=== PATIENT | male | born 1990 | race Caucasian/White ===

== ENCOUNTER 2019-01-26 20:22 | Inpatient (IN) | payer SELFPAY ==
[~2019-01-26] VITALS: Ht 172.7 cm; Wt 84.7 kg
[2019-01-26] MEDS ORDERED: ONDANSETRON HCL 4 MG/2 ML VIAL IV ONE (22:45)
[2019-01-26] MEDS ORDERED: cefTRIAXone 1GM/50ML D5W 50 ML IV ONE (22:45)
[2019-01-26] MEDS ORDERED: FAMOTIDINE (10MG/ML) 2ML VL IV ONE (22:45)
[2019-01-26] MEDS ORDERED: SODIUM CHLORIDE 0.9% 1,000 ML IV ONE (22:45)
[2019-01-26 23:22] LABS: Basophils # (auto) 0.1 uL; Basophils % (auto) 0.3 % (0.0-2.0); Eosinophils # (auto) 0 uL; Hematocrit 45.3 % (41.0-53.0); Lymphocytes # (auto) 1.4 uL; Lymphocytes % (auto) 8.7 % (10.0-50.0); Mean Corpuscular Hemoglobin 29.3 pg (28.0-32.0); Mean Corpuscular Hgb Conc. 33.1 g/dL (32.0-36.0); Mean Corpuscular Volume 88.5 fL (80.0-100.0); Monocytes # (auto) 0.8 uL; Neutrophils # (auto) 13.5 uL; Platelet Count (auto) 327 10^3/uL (140-450); Red Blood Cells 5.12 10^6/uL (4.5-5.90); Red Cell Distribution Width 12.7 % (11.8-14.3); White Blood Cell 15.7 10^3/uL (4.4-10.8)
[2019-01-26 23:40] LABS: Albumin 4.2 g/dL (3.4-5.0); BUN/Creatinine Ratio 19.6; Calcium 9.9 mg/dL (8.5-10.1); Potassium 4.1 mmol/L (3.5-5.1)
[2019-01-26 23:42] LABS: Bilirubin, Total 0.5 mg/dL (0.2-1.0); Total Protein 8.3 g/dL (6.4-8.2)
[2019-01-27 01:35] LABS: Alcohol, Urine < 3.0 mg/dL (0-5); Amphetamine Screen, Urine NEGATIVE (NEGATIVE); Barbiturate Scree,Urine NEGATIVE (NEGATIVE); Benzodiazephine Screen, Urine NEGATIVE (NEGATIVE); Cannabinoid Screen, Urine NEGATIVE (NEGATIVE); Cocaine Screen, Urine NEGATIVE (NEGATIVE); Opiate Scree,Urine NEGATIVE (NEGATIVE); Phencyclidine Screen, Urine NEGATIVE (NEGATIVE)
[2019-01-27 01:36] LABS: Urine Bacteria NONE SEEN /hpf (None Seen); Urine Blood Negative /uL (Negative); Urine Mucus FEW (None Seen); Urine WBC 1 /hpf (0 - 3)
[2019-01-27] MEDS ORDERED: SODIUM CHLORIDE 0.9% 1,000 ML IV ONE ×2 (02:15→03:30)
[2019-01-27] MEDS ORDERED: MECLIZINE HCL 25 MG TAB PO ONE ×2 (02:15→02:45)
[2019-01-27] MEDS ORDERED: ONDANSETRON HCL 4 MG/2 ML VIAL IV ONE (02:15)
[2019-01-27] MEDS ORDERED: metroNIDAZOLE 500MG/100ML 100 ML IV ONE (03:30)
[2019-01-27] MEDS ORDERED: ACETAMINOPHEN 325 MG TAB PO PRN (05:00)
[2019-01-27] MEDS ORDERED: HYDROcodone-ACET 5/325MG TAB PO PRN (05:00)
[2019-01-27] MEDS ORDERED: TEMAZEPAM 15 MG CAP PO PRN (05:00)
[2019-01-27] MEDS ORDERED: ONDANSETRON HCL 4 MG/2 ML VIAL IV PRN (05:00)
--- NOTE | 2019-01-27 06:25 | NUR ---
Patient arrived from ER to his room ambulating. He has no pain at the moment but does have severe N/V by his account vomited 40+ times. He is AOx4 and on room air. Bed is locked in lowest position and side rails up x2. Made him aware to use call light if assistance is needed. Will continue to monitor.
[2019-01-27 09:00] VITALS: BP 124/55
[2019-01-27] MEDS: FAMOTIDINE 20 MG TAB PO SCH ×2 (09:34→21:31)
[2019-01-27 13:00] VITALS: BP 105/58
[2019-01-27] MEDS: metroNIDAZOLE 500MG/100ML 100 ML IV SCH ×2 (13:27→21:31)
[2019-01-27 17:00] VITALS: BP 110/69
[2019-01-27] MEDS ORDERED: SUCRALFATE 1 GM/10 ML ORAL SUSP GT SCH (17:00)
[2019-01-27 17:04] LABS: Amylase 55 U/L (25-115); Lipase 149 U/L (73-393)
--- NOTE | 2019-01-27 19:10 | NUR ---
Opening Shift Note Assumed care of patient, awake and alert x4. Bed is in lowest position, side rails up x2, call light is within reach. No S/S of distress/SOB or pain. He stated he feels dizzy when he opens both eyes. Instructed him to call if he needs to get out of bed. Bed alarm is on. Instructed on POC and to call for assist PRN, will continue to monitor for changes Q1hr and PRN.
[2019-01-27] MEDS: SUCRALFATE 1 GM/10 ML ORAL SUSP PO SCH (21:31)
[2019-01-27] MEDS: cefTRIAXone 1GM/50ML D5W 50 ML IV SCH (21:31)
[2019-01-27 22:00] VITALS: BP 103/59
[2019-01-28 04:54] VITALS: BP 114/70
[2019-01-28] MEDS: SUCRALFATE 1 GM/10 ML ORAL SUSP PO SCH ×4 (06:46→21:24)
[2019-01-28] MEDS: metroNIDAZOLE 500MG/100ML 100 ML IV SCH ×3 (06:46→21:24)
--- NOTE | 2019-01-28 07:20 | NUR ---
Opening Shift Note Assumed care of patient, awake and alert. No S/S of distress/SOB or pain. Instructed on POC and to call for assist PRN, will continue to monitor for changes Q1hr and PRN.
--- NOTE | 2019-01-28 07:25 | NUR ---
Endorsed care to dayshift SHABBIR Spencer.
[2019-01-28 08:00] VITALS: BP 116/67
[2019-01-28 08:29] LABS: Basophils # (auto) 0.1 uL; Basophils % (auto) 0.8 % (0.0-2.0); Eosinophils # (auto) 0.1 uL; Eosinophils % (auto) 1.5 % (0.0-7.0); Hematocrit 47.5 % (41.0-53.0); Hemoglobin 15.6 g/dL (13.5-17.5); Lymphocytes # (auto) 2.4 uL; Lymphocytes % (auto) 30.5 % (10.0-50.0); Mean Corpuscular Hemoglobin 29.4 pg (28.0-32.0); Mean Corpuscular Hgb Conc. 32.8 g/dL (32.0-36.0); Mean Corpuscular Volume 89.6 fL (80.0-100.0); Monocytes # (auto) 0.7 uL; Monocytes % (auto) 9.1 % (0.0-12.0); Neutrophils # (auto) 4.6 uL; Neutrophils % (auto) 58.1 % (37.0-80.0); Platelet Count (auto) 312 10^3/uL (140-450); Red Blood Cells 5.31 10^6/uL (4.5-5.90); Red Cell Distribution Width 12.9 % (11.8-14.3)
[2019-01-28 08:47] LABS: BUN/Creatinine Ratio 10.7; Calcium 9.2 mg/dL (8.5-10.1); Potassium 3.9 mmol/L (3.5-5.1)
[2019-01-28 09:08] VITALS: BP 116/75
[2019-01-28] MEDS: FAMOTIDINE 20 MG TAB PO SCH ×2 (10:15→21:24)
[2019-01-28 12:38] VITALS: BP 112/68
[2019-01-28 17:13] VITALS: BP 110/70
--- NOTE | 2019-01-28 17:30 | NUR ---
EGD Left message with Dr. Ybarra. Patient does not want to sign consents or to have EGD. Addendum: 01/28/19 at 1920 by TORRES SALGUERO RN Received call back from Dr. Ybarra. Ordered to cancel consent and NPO orders.
--- NOTE | 2019-01-28 19:20 | NUR ---
Opening Shift Note Assumed care of pt., awake and alert x4, resting in bed on cell phone. No S/S of distress or SOB, no pain noted or reported at this time. Respirations are even and unlabored on room air. Updated pt. on POC and instructed to call for assistance as needed, pt. verbalized understanding. Bed locked in lowest position, side rails up x2, call light within reach. Will continue to monitor q1hr and PRN.
[2019-01-28] MEDS: cefTRIAXone 1GM/50ML D5W 50 ML IV SCH (21:24)
[2019-01-28 22:00] VITALS: BP 102/48
--- NOTE | 2019-01-29 05:06 | NUR ---
Pt. refused lab draw
[2019-01-29 05:07] VITALS: BP 110/71
[2019-01-29] MEDS: SUCRALFATE 1 GM/10 ML ORAL SUSP PO SCH (06:51)
[2019-01-29] MEDS: metroNIDAZOLE 500MG/100ML 100 ML IV SCH (06:51)
[2019-01-29 08:54] VITALS: BP 115/71
[2019-01-29 09:24] VITALS: BP 115/71
== END 2019-01-29 10:10 | disposition home or self-care (01) | DRG 392 ==
LOC: EDBD 20:22 → ER 20:27 → OVERFLOW 01-27 04:54 → WEST WING 01-27 06:18
PROVIDERS: ADMIT Nurse Practitioner; ATTEND Internal Medicine
DX: K52.9 Noninfective gastroenteritis and colitis, unspecified (principal); R65.10 Systemic inflammatory response syndrome (SIRS) of non-infectious origin without acute organ dysfunction; Z87.891 Personal history of nicotine dependence; E86.0 Dehydration; Z88.8 Allergy status to other drugs, medicaments and biological substances; D72.829 Elevated white blood cell count, unspecified
CPT/HCPCS: 36415; 74176; 80048; 80053; 80307; 81001; 82150; 83690; 85025; 87040; 96361; 96365; 96367; 96375; 96376; G0378; J0696; J2405; J3490